=== PATIENT | female | born 1990 | race Caucasian/White ===

== ENCOUNTER 2017-10-17 01:22 | Inpatient (IN) ==
--- OUTSIDE RECORDS SUMMARY | 2017-10-17 01:31 | External Medical Summary | Summary of Care ---
:1990 Author Organization [facility] Address [address] [place] [place] [address] Phone Care Team Providers Name Role Phone Blanquita Quintana Unavailable Unavailable PCP Not Assigned Unavailable Unavailable Unavailable Unavailable Unavailable Functional Status Functional Status Health Issues Name Dates Details Functional status health issues are not documented Status: Cognitive Status Health Issues Name Dates Details Cognitive status health issues are not documented Status: Problems Name Dates Details Contact dermatitis due to poison vine (692.6, L25.5) Status: Active Cutaneous abscess of right lower extremity (682.6, L02.415) Status: Active Acute sinusitis (461.9, J01.90) Status: Active Acute upper respiratory infection (465.9, J06.9) Status: Active Possible (V72.40, Z32.00) Status: Active Dysuria (788.1, R30.0) Status: Active Medications Name Dates Details Plus 27-1 MG Oral Tablet TAKE 1 TABLET DAILY. Quantity: 30 Refills: 1 Mary Quintanaey Start : 24-Mar-2017 End : 23-May-2017 Active Allergies and Adverse Reactions Name Dates Details Sulfa Drugs (Allergy) Status: Active Past Medical History Name Dates Details History of acute pharyngitis (V12.69, Z87.09) Status: Resolved History of Known health problems: none (V49.89, Z78.9) Status: Resolved Procedures Procedure Dates Details Urinalysis, Chemistries Only ([facility] only) 8017 Date: 23-Apr-2017 Immunization Name Dates Details Immunizations not documented Family History Mother Name Dates Details Family history of Known health problems: none (V49.89, Z78.9) Status: Active Father Name Dates Details Family history of Known health problems: none (V49.89, Z78.9) Status: Active Social History Name Dates Details - Status: Smoking Status Name Dates Details Light tobacco smoker Vital Signs Date Test Result Details 70-Pog-177824:54 BP Systolic 132 mm[Hg] Status: BP Diastolic 86 mm[Hg] Status: Weight 179.6 lb Status: Body Mass Index Calculated 28.99 kg/m2 Status: Body Surface Area Calculated 1.91 m2 Status: Temperature 97.5 f Status: Heart Rate 77 /min Status: O2 SAT 100 % Status: Results Date Description Value Details 33-Sgz-452989:35 URINE TEST 8010 Comments: Testing performed by [facility], [address] [place] [address] Phone: Testing performed by [facility], [address], [place] [address] URINE TEST Positive (Abnormal) Range: Negative Comments: Internal Control: Acceptable----- 42-Bqd-[id number]:44 SERUM TEST 8020 SERUM TEST Positive (Abnormal) Range: Negative Comments: Internal Control: Acceptable----- Plan of Care Name Dates Details Planned Observations Planned Goals not documented Instructions Name Dates Details Instructions not documented Encounters Appointment; Blanquita Quintana On: 18-May-2016 10:35 Encounter Diagnosis: Problem not documented Appointment; Blanquita Quintana On: 14-Jul-2016 8:25 Encounter Diagnosis: Problem not documented Appointment; Nury Rosas APRN On: 18-Dec-2016 8:45 Encounter Diagnosis: Problem not documented Appointment; Blanquita Quintana On: 05-Mar-2017 9:35 Encounter Diagnosis: Problem not documented Appointment; Blanquita Quintana On: 24-Mar-2017 16:00 Encounter Diagnosis: Problem not documented Appointment; Blanquita Quintana On: 23-Apr-2017 10:40 Encounter Diagnosis: Problem not documented
--- OUTSIDE RECORDS SUMMARY | 2017-10-17 01:31 | External Medical Summary | Summary of Care ---
:1990 Author Name Blanquita Quintana Address [address] [place], [place] [address] Care Team Providers Name Role Phone Mariano, Blanquita Unavailable Unavailable PCP Not Assigned Unavailable Unavailable [...] Status: Active Possible (V72.40, Z32.00) Status: Active Medications Name Dates Details Plus 27-1 MG Oral Tablet TAKE 1 TABLET DAILY. Quantity: 30 Refills: 1 Blanquita Quintana Start : 24-Mar-2017 End : 23-May-2017 Active Allergies and Adverse Reactions Name Dates Details Sulfa Drugs (Allergy) Status: Active Past Medical History Name Dates Details History of acute pharyngitis (V12.69, Z87.09) Status: Resolved History of Known health problems: none (V49.89, Z78.9) Status: Resolved Procedures Procedure Dates Details Procedures not documented Immunization Name Dates Details Immunizations not documented Family History Mother Name Dates Details Family history of Known health problems: none (V49.89, Z78.9) Status: Active Father Name Dates Details Family history of Known health problems: none (V49.89, Z78.9) Status: Active Social History Name Dates Details - Status: Smoking Status Name Dates Details Light tobacco smoker Vital Signs Date Test Result Details 14-Ldr-029006:54 BP Systolic 132 mm[Hg] Status: BP Diastolic 86 mm[Hg] Status: Weight 179.6 lb Status: Body Mass Index Calculated 28.99 kg/m2 Status: Body Surface Area Calculated 1.91 m2 Status: Temperature 97.5 f Status: Heart Rate 77 /min Status: O2 SAT 100 % Status: :45 Weight 178 lb Status: Body Mass Index Calculated 28.73 kg/m2 Status: Body Surface Area Calculated 1.9 m2 Status: Temperature 97.1 f Status: Comments: Method: Oral Heart Rate 70 /min Status: O2 SAT 99 % Status: Comments: Source: RA Results Date Description Value Details :51 STREPTOCOCCUS SCREEN WITH CULTURE Comments: *Culture in progress*Testing performed by [facility], [address], [place] [address] Testing performed by [facility], [address], [place] [address] 5040 *STREPTOCOCCUS SCREEN NEGATIVE for Streptococcus Range: NEGATIVE for Streptococcus pyogenes pyogenes :51 THROAT CULTURE [id number] Comments: Hunie performed at: [facility], [address] [place], [address], Rn Wellness: Avi Banegas D.O., MPHQuest Collection Date/Time: [id number] Results Received Date/Time: [id number] Reported Date /Time: [id number] CULTURE, THROAT SEE NOTE (Abnormal) Comments: CULTURE, THROAT MICRO NUMBER: [id number] TEST STATUS: FINAL SPECIMEN SOURCE: THROAT SPECIMEN QUALITY: ADEQUATE RESULT: Moderate growth of Group G Streptococcus Beta-hemolytic Streptococci are predictably susceptible to penicillin and other beta-lactams. Susceptibility testing not routinely performed. COMMENT: Normal oropharyngeal loni also present.[WV]----- :35 URINE TEST 8010 Comments: Testing performed by [facility], [address], [place] [address] Phone: Testing performed by [facility], [address], [place] [address] URINE TEST Positive (Abnormal) Range: Negative Comments: Internal Control: Acceptable----- :44 SERUM TEST 8020 SERUM TEST Positive (Abnormal) [...]
--- OUTSIDE RECORDS SUMMARY | 2017-10-17 01:31 | External Medical Summary | Summary of Care ---
:1990 Author Name Blanquita Quintana Address [address] [place], [place] [address] Care Team Providers Name Role Phone Mariano Blanquita Unavailable Unavailable PCP Not Assigned Unavailable [...] Status: Active Possible (V72.40, Z32.00) Status: Active Urinary tract infection in mother during first trimester of (646.63, O23.41) Status: Active Medications Name Dates Details Cephalexin 500 MG Oral Capsule Take 1 capsule BID for 7 days Quantity: 14 Refills: 0 Blanquita Quintana Start : 23-Apr-2017 End : 30-Apr-2017 Active Plus 27-1 MG Oral Tablet TAKE 1 [...] Procedures Procedure Dates Details Urinalysis, Chemistries Only ([facility] only) 8017 Date: 23-Apr-2017 Immunization Name Dates [...] smoker Vital Signs Date Test Result Details 83-[id number]:53 BP Systolic 120 mm[Hg] Status: BP Diastolic 66 mm[Hg] Status: Weight 177 lb Status: Body Mass Index Calculated 28.57 kg/m2 Status: Body Surface Area Calculated 1.9 m2 Status: Temperature 97.6 f Status: Heart Rate 70 /min Status: Respiration Rate 16 /min Status: O2 SAT 99 % Status: Results Date Description Value Details 76-[id number]:54 Urinalysis, reflex to Micro and Comments: Testing performed by [facility], [address] [place] [address] Culture ([facility]) 2201 pH 6.0 Range: 5.0-7.5 SP GRAVITY 1.015 Range: 1.010-1.030 APPEARANCE Cloudy (Abnormal) Range: Clear COLOR Yellow Range: Straw-Yellow PROTEIN Negative mg/dL Range: Negative-Trace GLUCOSE Negative mg/dL Range: Negative KETONES Negative mg/dL Range: Negative BILIRUBIN Negative Range: Negative BLOOD Negative Range: Negative UROBIL 0.2 EU/dL Range: 0.2-1.0 NITRITE Negative Range: Negative LEUKOCYTES 1+ (Abnormal) Range: Negative 51-[id number]:54 Urine Microscopic UMIC WBC 3-5 {/HPF} Range: 0-5 RBC 0-2 {/HPF} Range: 0-2 BACTERIA 1+ {/HPF} (Abnormal) Range: Negative-Trace EPITH 3-5 {/HPF} Range: 0-10 Plan of Care Name Dates Details Planned [...]
--- OUTSIDE RECORDS SUMMARY | 2017-10-17 01:31 | External Medical Summary | Continuity of Care Document ---
:1990 Author Organization [facility] Address [address] [place], [place] [address] Phone Allergies, Adverse Reactions, Alerts Substance Reaction Severity Status Sulfa (Sulfonamide Antibiotics) hives Unknown Active Medications Medication Instructions Dosage Effective Dates Status Comments (start - stop) cyclobenzaprine 5 mg take 1 tablet by oral 5 MG - Active [facility] tablet route 3 times every day as needed FAMOTIDINE (unknown take 1 tablet by oral - Active strength) route every day as needed PREPLUS (unknown take 1 tablet by oral - Active strength) route every day Problems Condition Effective Dates (start - stop) Clinical Status Encntr for suprvsn of normal first - preg, third trimester 32 weeks gestation of - Encntr for suprvsn of normal first - preg, second trimester 16 weeks gestation of - Oth diseases and conditions compl - preg/chldbrth Encntr for suprvsn of normal first - preg, third trimester 29 weeks gestation of - Oth diseases and conditions compl - preg/chldbrth 32 weeks gestation of - Headache - Encntr for suprvsn of normal first - preg, second trimester 24 weeks gestation of - Encntr screen for infections w sexl - mode of transmiss Encounter for screening for oth - infec/parastc diseases Encntr for suprvsn of normal first - preg, first trimester Encounter For Other Specified - Screening 11 weeks gestation of - Encntr for suprvsn of normal first - preg, first trimester 13 weeks gestation of - Encntr for suprvsn of normal first - preg, first trimester 13 weeks gestation of - Encntr for suprvsn of normal first - preg, second trimester 20 weeks gestation of - Encntr for suprvsn of normal first - preg, second trimester 20 weeks gestation of - Encntr for suprvsn of normal first - preg, third trimester 34 weeks gestation of - Encntr for suprvsn of normal first - preg, third trimester 28 weeks gestation of - Procedures Procedure Date OB Visit No Charge Results Test Name Date and Time Measure Units Reference Range Abnormal Flag Comments Unknown Advance Directives Directive Yes / No Effective Date File Name Unknown Encounters Encounter Practice Location Reason(s) Diagnoses Date Provider Care Team Description For Visit Members Dat Wagner Encntr for Ciro Referring In Womens suprvsn of normal 7-201 Linda. Provider: Health PA, first preg, third 8 700 Linda [address] [email or web address] weeks Laine Tanner L, 1522, gestation of Center [address] [place] [address], Dr [facility], 120, [place] [id number], [facility], Bernard [place], tel:[phone] [place] [address] , . [id number]. tel: tel:[phone] Dat Wagner Encntr for Ciro Referring In Womens suprvsn of normal 3-201 Linda. Provider: Health PA, first preg, third 8 700 Linda PO Box [email or web address] weeks Laine Tanner L, 1522, gestation of [address], [address] [facility], 120, [place] [id number], [facility], Bernard [place], tel:[phone] [facility] , . [id number]. tel: tel:[phone] Dat Wagner Oth diseases and Alexys-1 Ciro Referring In Womens Ultrasound conditions compl 3-201 Linda. Provider: Daniel REID, preg/[email or web address] 8 700 Blanquita PO Box weeks gestation Medical Mariano, 1522, of Center [address], [place], 120, [place] [id number], Bernard, Office, [facility], Doshi tel:[phone] , [place], , [place]. [id number]. tel: tel:[phone] Associates [place] Oth diseases and August-2 Ciro Referring In Womens conditions compl 9-201 Linda. Provider: Daniel REID, preg/chldbrthEncn 8 700 Linda PO Box tr for suprvsn of Medical Ciro L, 1522, normal first Center [address] [place] [address], preg, third [place], [email or web address] weeks 120, [place] , gestation of Bernard [facility] 120, [place], tel: [phone] [place], , [place]. [id number]. tel: tel:[phone] Associates [place] Encntr for August- Ciro Referring In Womens suprvsn of normal 6-201 Linda. Provider: Daniel REID, first preg, third 8 700 Linda PO Box [email or web address] weeks Medical Ciro L, 1522, gestation of Center [address] [place] [address], [place], 120, [place] [id number], Bernard [facility] 120, [place] Bernard [place], tel:[phone] [place], , [place]. [id number]. tel: tel:[phone] Associates [place] HeadacheEncntr Jul- Ciro Referring In Womens for suprvsn of 8-201 Linda. Provider: Daniel REID, normal first 8 700 Linda PO Box preg, second Medical Ciro L, 1522, weeks Center [address] [place] [address], gestation of [place], 120, Center [id number], Bernard [facility] 120, [place] Bernard [place], tel:[phone] [place], , [place]. [id number]. tel: tel:[phone] Dat Wagner Apr-1 Ciro Referring In Womens 1-201 Linda. Provider: Daniel REID, 8 700 Linda PO Box Medical Ciro L, 1522, Center [address], [place], 120, Center [id number], Bernard [facility] 120, [place] Bernard [place], tel:[phone] [place], , [place]. [id number]. tel: tel:[phone] Dat Wagner Encntr for Mar-2 Ciro Referring In Womens suprvsn of normal 1-201 Linda. Provider: Daniel REID, first preg, 8 700 Linda PO Box second Medical Ciro L, 1522, [email or web address] weeks Center [address] [place] [address], gestation of [place], 120, [place] [id number], Bernard [facility] 120, [place] Bernard [place], tel:[phone] [place], , [place]. [id number]. tel: tel:[phone] Dat Wagner Encntr for Mar-2 Ciro Referring In Womens Ultrasound suprvsn of normal 1-201 Linda. Provider: Daniel REID, first preg, 8 700 Linda PO Box second Medical Ciro L, 1522, [email or web address] weeks Center [address] [place] [address], gestation of [place], 120, [place] [id number], Bernard [facility] 120, [place] Bernard [place], tel:[phone] [place], , [place]. [id number]. tel: tel:[phone] Dat Wagner Encntr for Feb-2 Ciro Referring In Womens suprvsn of normal 1-201 Linda. Provider: Daniel REID, first preg, 8 700 Linda PO Box second Medical Ciro L, 1522, [email or web address] weeks Center [address] [place] [address], gestation of [place], 120, [place] [id number], Bernard [facility] 120, [place] Bernard [place], tel:[phone] [place], , [place]. [id number]. tel: tel:[phone] Associates [place] Encntr for Feb-0 Ciro Referring In Womens suprvsn of normal 1-201 Linda. Provider: Daniel REID, first preg, first 8 700 Linda PO Box [email or web address] weeks Medical Ciro L, 1522, gestation of Center [address], , [facility], 120, [place] [id number], Bernard [facility] 120, [place] Bernard [place], tel:[phone] [place], , [place]. [id number]. tel: tel:[phone] Associates [place] Castillontr for Feb-0 Ciro Referring In Womens Ultrasound suprvsn of normal 1-201 Linda. Provider: Daniel REID, first preg, first 8 700 Blanquita PO Box [email or web address] weeks Medical Mariano, 1522, gestation of Center [address] [facility], , [facility], 120, [place] [id number], Bernard, Office, [facility] Doshi tel: [phone] , [place], , [place]. [id number]. tel: tel:[phone] Dat Castillontr screen for Dwain-2 Ciro Referring In Womens infections w sexl 3-201 Linda. Provider: Daniel REID, mode of 8 700 Linda PO Box transmiss[facility]ounte [facility], 1522, r for screening [address], for oth , [facility], infec/parastc 120, [place] [id number], diseases[facility]ntr [facility] 120, [place] for suprvsn of Bernard SARAVIA, tel:[phone] normal first [phone] [place], preg, first , [place]. [id number]. trimesterEncounte tel: tel:[phone] r For Other [phone] Specified [email or web address] weeks gestation of Associates Bernard Dec-2 Ciro In Womens 9-201 Linda. Daniel REID, 7 700 PO Box Medical [address], [address] [facility], 120, [id number], [facility] [place], tel:[phone] , . tel: [phone] Family History Family Member Diagnosis Age At Onset No family history of Venous Thrombosis Maternal Grandmother Cardiovascular Disease Paternal Grandmother Lung Disease Paternal Grandfather Cardiovascular Disease No family history of Ovarian Cancer No family history of Epilepsy Paternal Grandmother Hypertension No family history of Uterine Cancer Maternal Grandmother Hypertension Maternal Grandmother Stroke Paternal Grandmother Thyroid Disorder Maternal Grandmother Diabetes No family history of Colon Cancer No family history of Pulmonary Embolism Paternal Grandfather Stroke No family history of Kidney Disease Maternal Grandmother Breast Cancer Mother Osteoporosis Father Cardiovascular Disease Father Lung Disease Brother Hypertension Maternal Grandfather Hypertension Paternal Grandfather Hypertension Immunizations Vaccine Date Status Comments Unknown Payers Payer name Insurance type Covered libertarian ID Authorization(s) [facility] [employer] [facility] [id number] Social History Type Description Quantity Date Captured Alcohol Use Details No Caffeine Use Details Unknown Tobacco Use Status Smoking Status Former smoker Vital Signs Date / Height Weight BMI Pulse Blood Temperature Respiratory Body Head BMI Time: Rate Pressure Rate Surface Circumference percentile Area Unknown Chief Complaint And Reason For Visit Unknown Chief Complaint And Reason For Visit Reason For Referral Reason For Referral Unknown Plan Of Care Date Type Action Status Goal Tobacco cessation counseling completed Appointment Lorena Tim BOOKED Appointment Lorena Tim BOOKED Future Order: Radiology Order Ultrasound OB Follow-up (95170) Ordered Future Order: Radiology Order Nuchal Translucency (31931) Ordered Future Order: Radiology Order Complete OB Ultrasound > 14 Ordered Weeks (98193) Date Type Problem Goal Intervention Status Start Date Unknown. History Of Present Illness Encounter Date Complaint History Of Present Illness This patient has no known history of present illness Functional Status Encounter Date Functional Assessment Cognitive Assessment Unknown Medications Administered Medication Instructions Dosage Effective Dates (start - stop) Status Comments Drug Treatment Unknown Instructions Date Instruction Additional Information use of any medications (including supplements, vitamins, herbs, OTC drugs) exercise indications for ultrasound influenza vaccine environmental / work hazards travel tobacco (ask, advise, assess, assist and arrange) HIV and other routine tests risk factors identified by history anticipated course of care nutrition and weight gain counseling, special diet toxoplasmosis precautions (cats / raw meat) sexual activity smoking counseling domestic violence seat belt use childbirth classes / hospital facilities hospital registration genetic testing new ob handbook
--- OUTSIDE RECORDS SUMMARY | 2017-10-17 01:31 | External Medical Summary | Summary of Care ---
:1990 Author Name Blanquita Quintana Address [address] [place], [place] [address] Care Team Providers Name Role Phone Mariano [...] O23.41) Status: Active Medications Name Dates Details Plus 27-1 MG Oral Tablet TAKE 1 TABLET DAILY. Quantity: 30 Refills: 1 Blanquita Quintana Start : 24-Mar-2017 End : 23-May-2017 Active Cephalexin 500 MG Oral Capsule Take 1 capsule BID for 7 days Quantity: 14 Refills: 0 Blanquita Quintana Start : 23-Apr-2017 End : 30-Apr-2017 Active Allergies and Adverse Reactions Name Dates Details Sulfa Drugs (Allergy) Status: Active Past Medical History Name Dates Details History of acute pharyngitis (V12.69, Z87.09) Status: Resolved History of Known health problems: none (V49.89, Z78.9) Status: Resolved Procedures Procedure Dates Details Urinalysis, Chemistries Only ([facility] only) 8017 Date: 23-Apr-2017 Immunization [...] smoker Vital Signs Date Test Result Details :53 BP Systolic 120 mm[Hg] Status: BP Diastolic 66 mm[Hg] Status: Weight 177 lb Status: Body Mass Index Calculated 28.57 kg/m2 Status: Body Surface Area Calculated 1.9 m2 Status: Temperature 97.6 f Status: Heart Rate 70 /min Status: Respiration Rate 16 /min Status: O2 SAT 99 % Status: :54 BP Systolic 132 mm[Hg] Status: BP Diastolic 86 mm[Hg] Status: Weight 179.6 lb Status: Body Mass Index Calculated 28.99 kg/m2 Status: Body Surface Area Calculated 1.91 m2 Status: Temperature 97.5 f Status: Heart Rate 77 /min Status: O2 SAT 100 % Status: Results Date Description Value Details :35 URINE TEST 8010 Comments: Testing performed by [facility], [employer] [facility] [place] [facility] [place] Phone: Testing performed by [facility], [employer] [facility] [place] [facility] [place] URINE TEST Positive (Abnormal) Range: Negative Comments: Internal Control: Acceptable----- :44 SERUM TEST 8020 SERUM TEST Positive (Abnormal) Range: Negative Comments: Internal Control: Acceptable----- :54 Urinalysis, reflex to Micro and Comments: Testing performed by [facility], [id number] Culture ([facility]) 8016 pH 6.0 Range: 5.0-7.5 SP GRAVITY 1.015 Range: 1.010-1.030 APPEARANCE Cloudy (Abnormal) Range: Clear COLOR Yellow Range: Straw-Yellow PROTEIN Negative mg/dL Range: Negative-Trace GLUCOSE Negative mg/dL Range: Negative KETONES Negative mg/dL Range: Negative BILIRUBIN Negative Range: Negative BLOOD Negative Range: Negative UROBIL 0.2 EU/dL Range: 0.2-1.0 NITRITE Negative Range: Negative LEUKOCYTES 1+ (Abnormal) Range: Negative Plan of Care Name Dates Details Planned Observations Planned Goals not documented Interventions Provided Medication ChangesCephalexin 500 MG Oral Capsule - StartLabs/Procedures/Imaging Urinalysis, Chemistries Only ([facility] only) 8017; To Be Done: 23 Apr 2017 Instructions Name Dates Details Instructions not documented [...]
--- OUTSIDE RECORDS SUMMARY | 2017-10-17 01:31 | External Medical Summary | Summary of Care ---
:1990 Author Name MarianoBlanquita sanches Address [address] Unavailable [place], [place] [id number] Care Team Providers Name Role Phone Blanquita Quintana Unavailable Unavailable Nury Rosas Unavailable Unavailable PCP Not Assigned Unavailable Unavailable [...] upper respiratory infection (465.9, J06.9) Status: Active Medications Name Dates Details Claritin 10 MG Oral Capsule Refills: 0 Nury Rosas Start : 18-Dec-2016 Active PredniSONE 10 MG Oral Tablet TAKE 4 TABLETS DAILY FOR 2 DAYS,3 TABLETS DAILY FOR 2 DAYS, 2 TABLETS DAILY FOR 2 DAYS AND 1 TABLET DAILY FOR 2 DAYS, THEN STOP. Quantity: 20 Refills: 0 Blanquita Quintana Start : 05-Mar-2017 Active Azithromycin 250 MG Oral Tablet Take 2 po today then 1 po for 4 days. Quantity: 6 Refills: 0 Blanquita Quintana Start : 05-Mar-2017 Active Allergies and Adverse Reactions Name Dates [...] smoker Vital Signs Date Test Result Details 38-Kxi-64407:45 Weight 178 lb Status: Body Mass Index Calculated 28.73 kg/m2 Status: Body Surface Area Calculated 1.9 m2 Status: Temperature 97.1 f Status: Comments: Method: Oral O2 SAT 99 % Status: Comments: Source: RA Heart Rate 70 /min Status: Results Date Description Value Details 75-Byc-30784:51 STREPTOCOCCUS SCREEN WITH CULTURE Comments: *Culture in progress*Testing performed by [facility], [address], [place] [address] Testing performed by [facility], [address], [place] [address] 5040 *STREPTOCOCCUS SCREEN NEGATIVE for Streptococcus Range: NEGATIVE for Streptococcus pyogenes pyogenes Plan of Care Name Dates Details Planned Observations Planned Goals not documented Interventions Provided Medication ChangesAzithromycin 250 MG Oral Tablet - StartPredniSONE 10 MG Oral Tablet - StartLabs/Procedures/ImagingSTREPTOCOCCUS SCREEN WITH CULTURE 5040; Done: 05 Mar 2017 Instructions Name Dates Details Instructions not documented Encounters Appointment; Blanquita Quintana On: 18-May-2016 10:35 Encounter Diagnosis: Problem not documented Appointment; Blanquita Quintana On: 14-Jul-2016 8:25 Encounter Diagnosis: Problem not documented Appointment; Nury Rosas APRN On: 18-Dec-2016 8:45 Encounter Diagnosis: Problem not documented Appointment; Blanquita Quintana On: 05-Mar-2017 9:35 Encounter Diagnosis: Problem not documented
--- OUTSIDE RECORDS SUMMARY | 2017-10-17 01:31 | External Medical Summary | Summary of Care ---
:1990 Author Name Blanquita Quintana Address [address] Unavailable [place], [place] [id number] Care Team Providers Name Role Phone Mariano [...] Z78.9) Status: Resolved Procedures Procedure Dates Details SERUM TEST 8020 Date: 24-Mar-2017 Immunization Name Dates Details Immunizations not documented Family History Mother Name Dates Details Family history of Known health problems: none (V49.89, Z78.9) Status: Active Father Name Dates Details Family history of Known health problems: none (V49.89, Z78.9) Status: Active Social History Name Dates Details - Status: Smoking Status Name Dates Details Light tobacco smoker Vital Signs Date Test Result Details 18-Twk-751276:54 BP Systolic 132 mm[Hg] Status: BP Diastolic [...] CULTURE Comments: *Culture in progress*Testing performed by [facility], [address], [place] [address] Testing performed by [facility], [address], [place] [address] 5040 *STREPTOCOCCUS SCREEN NEGATIVE for Streptococcus Range: NEGATIVE for Streptococcus pyogenes pyogenes :51 THROAT CULTURE J72306 Comments: [employer] performed at: [facility]apFormerly [facility], [address] [place], [address], Meter Changes Records Clerk: Avi Banegas D.O., MPHQuest Collection Date/Time: [id number] [id number] Results Received Date/Time: [id number] Reported Date /Time: [id number] CULTURE, THROAT SEE NOTE (Abnormal) Comments: CULTURE, THROAT MICRO NUMBER: [id number] TEST STATUS: FINAL SPECIMEN SOURCE: THROAT SPECIMEN QUALITY: ADEQUATE RESULT: Moderate growth of Group G Streptococcus Beta-hemolytic Streptococci are predictably susceptible to penicillin and other beta-lactams. Susceptibility testing not routinely performed. COMMENT: Normal oropharyngeal loni also present.[AR]----- :35 URINE TEST 8010 Comments: Testing performed by [facility], [address], [place] [address] Phone: Testing performed by [facility], [address], [place] [address] URINE TEST Positive (Abnormal) Range: Negative Comments: Internal Control: Acceptable----- Plan of Care Name Dates Details Planned Observations Planned Goals not documented Interventions Provided Medication ChangesPrenatal Plus 27-1 MG Oral Tablet - StartLabs/Procedures/ ImagingSERUM TEST 8020; To Be Done: 24 Mar 2017URINE TEST 8010; Done: 24 Mar 2017 Instructions Name Dates Details Instructions [...]
--- OUTSIDE RECORDS SUMMARY | 2017-10-17 01:31 | External Medical Summary | Summary of Care ---
:1990 Author Name Nury Rosas Address [address] [place] [place], [place] [address] Care Team Providers Name Role Phone Nury Rosas Unavailable Unavailable PCP Not Assigned [...] Active Acute sinusitis (461.9, J01.90) Status: Active Medications Name Dates Details Claritin 10 MG Oral Capsule Refills: 0 Juana oRsasfer Start : 18-Dec-2016 Active Amoxicillin-Pot Clavulanate 875-125 MG Oral Tablet TAKE 1 TABLET EVERY 12 HOURS DAILY. Quantity: 20 Refills: 0 Nury Rosas Start : 18-Dec-2016 End : 28-Dec-2016 Active PredniSONE 10 MG Oral Tablet TAKE 4 TABLETS DAILY FOR 2 DAYS,3 TABLETS DAILY FOR 2 DAYS, 2 TABLETS DAILY FOR 2 DAYS AND 1 TABLET DAILY FOR 2 DAYS, THEN STOP. Quantity: 20 Refills: 0 Juana Rosasfer Start : 18-Dec-2016 Active Fluticasone Propionate 50 MCG/ACT Nasal Suspension USE 1 TO 2 SPRAYS IN EACH NOSTRIL ONCE DAILY. Quantity: 1 Refills: 0 Ralph Nury Start : 18-Dec-2016 Active 16 GM Bottle Allergies and Adverse Reactions Name Dates Details Sulfa Drugs (Allergy) Status: Active Past Medical History Name Dates Details History of Known health problems: none (V49.89, [...] smoker Vital Signs Date Test Result Details 18-Dec-20168:50 BP Systolic 129 mm[Hg] Status: BP Diastolic 83 mm[Hg] Status: Weight 178.6 lb Status: Height 66 in Status: Body Mass Index Calculated 28.83 kg/m2 Status: Body Surface Area Calculated 1.91 m2 Status: Temperature 98.1 f Status: Heart Rate 76 /min Status: Respiration Rate 18 /min Status: O2 SAT 99 % Status: Results Date Description Value Details Results not documented Plan of Care Name Dates Details Planned Observations Planned Goals not documented Interventions Provided Medication ChangesAmoxicillin-Pot Clavulanate 875-125 MG Oral Tablet - StartFluticasone Propionate 50 MCG/ACT Nasal Suspension - StartPredniSONE 10 MG Oral Tablet - Start Instructions Name Dates Details Instructions not documented Encounters Appointment; Blanquita Quintana On: 18-May-2016 10:35 Encounter Diagnosis: Problem not documented Appointment; Blanquita Quintana On: 14-Jul-2016 8:25 Encounter Diagnosis: Problem not documented Appointment; Nury Rosas APRN On: 18-Dec-2016 8:45 Encounter Diagnosis: Problem not documented
--- OUTSIDE RECORDS SUMMARY | 2017-10-17 01:31 | External Medical Summary | Summary of Care ---
:1990 Author Organization [facility] Address [address] [place] [address] Phone Care Team Providers Name Role Phone Alexandria Celeste, User Unavailable Unavailable Blanquita Quintana Unavailable Unavailable Nury Rosas Unavailable [...] smoker Vital Signs Date Test Result Details :45 Weight 178 lb Status: Body Mass Index Calculated 28.73 kg/m2 Status: Body Surface Area Calculated 1.9 m2 Status: Temperature 97.1 f Status: Comments: Method: Oral O2 SAT 99 % Status: Comments: Source: RA Heart Rate 70 /min Status: Results Date Description Value Details :51 STREPTOCOCCUS SCREEN WITH CULTURE Comments: *Culture in progress*Testing performed by [facility], [address], [place] [address] Testing performed by [facility], [address], [place] [address] 5040 *STREPTOCOCCUS SCREEN NEGATIVE for Streptococcus Range: NEGATIVE for Streptococcus pyogenes pyogenes :51 THROAT CULTURE [id number] Comments: L[employer] performed at: [facility]endineroFormerly [facility], [address] [place], [address], Meter Changes Records Clerk: Avi Banegas D.O., MPHQuest Collection Date/Time: 20160412 [id number] Results Received Date/Time: [id number] Reported Date /Time: [id number] CULTURE, THROAT SEE NOTE (Abnormal) Comments: CULTURE, THROAT MICRO NUMBER: [id number] TEST STATUS: FINAL SPECIMEN SOURCE: THROAT SPECIMEN QUALITY: ADEQUATE RESULT: Moderate growth of Group G Streptococcus Beta-hemolytic Streptococci are predictably susceptible to penicillin and other beta-lactams. Susceptibility testing not routinely performed. COMMENT: Normal oropharyngeal loni also present.[IN]----- Plan of Care Name Dates Details Planned [...]
--- OUTSIDE RECORDS SUMMARY | 2017-10-17 01:31 | External Medical Summary | Summary of Care ---
:1990 Author Name MarianoBlanquita sanches Address [address] Unavailable [place], [place] [address] Care Team Providers Name Role Phone Blanquita [...] CULTURE Comments: *Culture in progress*Testing performed by [facility], [address] [place] [address] Testing performed by [facility], 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 Susceptibility testing not routinely performed. COMMENT: Normal oropharyngeal loni also present.[SD]----- Plan of Care Name Dates Details Planned [...]
--- OUTSIDE RECORDS SUMMARY | 2017-10-17 01:31 | External Medical Summary | Continuity of Care Document ---
:1990 Author Organization [facility] Address [address] [place], [place] [address] Phone Allergies, Adverse Reactions, Alerts Substance Reaction [...] Effective Dates (start - stop) Clinical Status Oth diseases and conditions compl - preg/chldbrth 32 weeks gestation of - Encntr for suprvsn of normal first - preg, second trimester 16 weeks gestation of - Oth diseases and conditions compl - preg/chldbrth Encntr for suprvsn of normal first - preg, third trimester 29 weeks gestation of - Headache - Encntr [...] weeks gestation of - Procedures Procedure Date Ultrasnd preg uterus, flwup/repeat Results Test Name Date and Time Measure Units Reference Range Abnormal Flag Comments Unknown Advance Directives Directive Yes / No Effective Date File Name Unknown Encounters Encounter Practice Location Reason(s) Diagnoses Date Provider Care Team Description For Visit Members [facility] Encntr for Ciro Referring In Womens suprvsn of normal 7-201 Linda. Provider: Daniel REID, first preg, third 8 700 Linda [address] [email or web address] weeks Liane Tanner L, 1522, gestation of Center [address] [place] [address], Dr [facility], 120, [place] [id number], [facility] 120, Bernard SARAV[place], tel:+ [phone] [place] [address] , . [id number]. tel: tel:[phone] Dat [facility] Encntr for Sep- Ciro Referring In Womens suprvsn of normal 3-201 Linda. Provider: Health FRANKLIN, first preg, third 8 700 Linda [address] [email or web address] weeks Medical Ciro L, 1522, gestation of Center [address] [place], [place] [address], [place], 120, [place] [id number], [facility] 120, Bernard [place], tel: [phone] [facility] , . [id number]. tel: tel:[phone] [facility] Oth diseases and Alexys-1 Ciro Referring In Womens Ultrasound conditions compl 3-201 Linda. Provider: Daniel REID, preg/asogsrxx91 8 700 Blanquita PO Box weeks gestation Medical Mariano, 1522, of Center [address], [place], 120, [place] [id number], Bernard, Office, [facility], Doshi tel:[phone] , [place], [place]. [id number]. tel: tel:[phone] [facility] Oth diseases and August-2 Ciro Referring In Womens conditions compl 9-201 Linda. Provider: Daniel REID, preg/chldbrthEncn 8 700 Linda [address] tr for suprvsn of Medical Ciro L, 1522, normal first Center [address] [place], [place] [address], preg, third [place], [email or web address] weeks 120, [place] , gestation of Bernard [facility] 120, [place], tel:[phone] [place], , [place]. [id number]. tel: tel:[phone] [facility] Encntr for August-1 Ciro Referring In Womens suprvsn of normal 6-201 Linda. Provider: Daniel REID, first preg, third 8 700 Linda [address] [id number] weeks Medical Ciro L, 1522, gestation of Center [address] [place] [address], [place], 120, [place] [id number], Bernard [facility] 120, [place] Bernard SARAV[place], tel:[phone] [place], , [place]. [id number]. tel: tel:[phone] [facility] HeadacheEncntr Apr- Ciro Referring In Womens for suprvsn of 8-201 Linda. Provider: Daniel REID, normal first 8 700 Linda [address] preg, second Medical Ciro L, 1522, [id number] weeks Center [address] [place] [address], gestation of [place], 120, Center [id number], Bernard [facility] 120, [place] Bernard [place], tel:[phone] [place], , [place] [id number]. tel: tel:[phone] Dat [facility] Apr-1 Ciro Referring In Womens 1-201 Linda. Provider: Daniel REID, 8 700 Linda [address] Medical Ciro L, 1522, Center [address], [place], 120, Center [id number], Bernard [facility] 120, [place] Bernard [place], tel:[phone] [place], , [place]. [id number]. tel: tel:[phone] Dat [facility] Encntr for Mar-2 Ciro Referring In Womens suprvsn of normal 1-201 Linda. Provider: Health FRANKLIN, first preg, 8 700 Linda PO Box second Medical Ciro L, 1522, [email or web address] weeks Center [address] [place], [place] [address], gestation of [place], 120, Center [id number], Bernard [place] 120, [place] Bernard SARAV[place], tel:[phone] [place], , [place]. [id number]. tel: tel:[phone] Dat [facility] Encntr for Mar-2 Ciro Referring In Womens Ultrasound suprvsn of normal 1-201 Linda. Provider: Health FRANKLIN, first preg, 8 700 Linda [address] second Medical Ciro L, 1522, weeks Center [address] [place], [place] [address], gestation of [place], 120, Center [id number], Bernard [place] 120, [place] Bernard SARAVIA, tel:[phone] [place], , [place]. [id number]. tel: tel:[phone] Dat [facility] Encntr for Feb-2 Ciro Referring In Womens suprvsn of normal 1-201 Linda. Provider: Daniel REID, first preg, 8 700 Linda PO Box second Medical Ciro L, 1522, [email or web address] weeks Center [address] [place] [address], gestation of [place], 120, Center [id number], Bernard [place] 120, [place] Bernard SARAVIA, tel:[phone] [place], , [place]. [id number]. tel: tel:[phone] Dat [place] Encntr for Feb-0 Ciro Referring In Womens suprvsn of normal 1-201 Linda. Provider: Health FRANKLIN, first preg, first 8 700 Linda [address] [id number] weeks Medical Ciro L, 1522, gestation of Center [address], , [facility], 120, [place] [id number], Bernard, [facility] 120, [place] Bernard SAR[place], tel:[phone] [place], , [place]. [id number]. tel: tel:[phone] Dat Castillontr for Feb-0 Ciro Referring In Womens Ultrasound suprvsn of normal 1-201 Linda. Provider: Daniel REID, first preg, first 8 700 Blanquita [address] Box [email or web address] weeks Medical Mariano, 1522, gestation of Center [address], [place], 120, [place] [id number], Bernard, Office, [place] tel:[phone] , [place], [place]. [address]. tel: tel:[phone] Dat [place] Encntjw screen for Dwain-2 Ciro Referring In Womens infections w sexl 3-201 Linda. Provider: Daniel REID, mode of 8 700 Linda [address] transmissEncounte Medical [facility] L, 1522, r for screening Center [address] [place] [address], for oth , [facility], infec/parastc 120, Center [id number], diseasesEncntr [facility] 120, [place] for suprvsn of Bernard SARAVIA, tel:[phone] normal first [place], preg, first , [place]. [id number]. trimesterEncounte tel: tel:[phone] r For Other [phone] Specified [id number] weeks gestation of Dat Wagner Dec-2 Ciro In Womens 9-201 Linda. Health FRANKLIN, 7 700 [address] Medical [address], Center Dr Jey, [place], 120, [id number], [facility] [place], tel:[phone] , [place]. tel: [phone] Family History Family Member Diagnosis Age At [...] name Insurance type Covered libertarian ID Authorization(s) [facility] [id number] Social History Type Description Quantity Date Captured Unknown Vital Signs Date / Height Weight BMI [...] Future Order: Radiology Order Ultrasound OB Follow-up (22157) Ordered Future Order: Radiology Order Nuchal Translucency ([id number]) Ordered Future Order: Radiology Order Complete OB Ultrasound > 14 Ordered Weeks (89262) Date Type Problem Goal Intervention Status Start [...]
--- OUTSIDE RECORDS SUMMARY | 2017-10-17 01:32 | External Medical Summary | Continuity of Care Document ---
:1990 Author Organization [facility] Address [address] [place], [place] [address] Phone Allergies, Adverse Reactions, Alerts Substance Reaction [...] Effective Dates (start - stop) Clinical Status Headache - Encntr for suprvsn of normal first - preg, second trimester 24 weeks gestation of - Encntr for suprvsn of normal first - preg, second trimester 16 weeks gestation of - Encntr screen for [...] second trimester 20 weeks gestation of - Procedures Procedure Date OB Visit No Charge Results Test Name Date and Time Measure Units Reference Range Abnormal Flag Comments Unknown Advance Directives Directive Yes / No Effective Date File Name Unknown Encounters Encounter Practice Location Reason(s) Diagnoses Date Provider Care Team Description For Visit Members Dat VailEncjarrett Jul- Ciro Referring In Womens for suprvsn of 8-201 Linda. Provider: Daniel REID, normal first 8 700 Linda [address] preg, second Medical Ciro L, 1522, [email or web address] weeks Center [address], gestation of [place], 120, Center [id number], Bernard, [facility] 120, Bernard SAR[place], tel:[phone] [place], , [place]. [id number]. tel: tel:[phone] Dat [facility] Jul- Ciro Referring In Womens 1-201 Linda. Provider: Daniel REID, 8 700 Linda [address] Medical Ciro L, 1522, Center [facility] [address], [place], 120, [place] [id number], Bernard, [facility] 120, [place] Bernard SARAV[place], tel:[phone] [place], , [place]. [id number]. tel: tel:[phone] Dat [facility] Encntr for Mar-2 Ciro Referring In Womens suprvsn of normal 1-201 Linda. Provider: Daniel REID, first preg, 8 700 Linda PO Box second Medical Ciro L, 1522, [email or web address] weeks Center [address], gestation of [place], 120, Center [id number], Bernard, [facility] 120, [place] Bernard [place], tel:[phone] [place], , [place]. [id number]. tel: tel:[phone] Dta [facility] Encntr for Mar-2 Ciro Referring In Womens Ultrasound suprvsn of normal 1-201 Linda. Provider: Daniel REID, first preg, 8 700 Linda PO Box second Medical Ciro L, 1522, [email or web address] weeks Center [address] [place] [address], gestation of [place], 120, Center [id number], Bernard, [facility] 120, [place] Bernard [place], tel:[phone] [place], , [place]. [id number]. tel: tel:[phone] Dat [facility] Encntr for Feb-2 Ciro Referring In Womens suprvsn of normal 1-201 Linda. Provider: Daniel REID, first preg, 8 700 Linda PO Box second Medical Ciro L, 1522, [id number] weeks Center [address] [place] [address], gestation of [place], 120, Center [id number], Bernard [facility] 120, [place] Bernard [place], tel:[phone] [place], , [place]. [id number]. tel: tel:[phone] Dat [facility] Encntr for Feb-0 Ciro Referring In Womens suprvsn of normal 1-201 Linda. Provider: Daniel REID, first preg, first 8 700 Linda [address] [email or web address] weeks Medical Ciro L, 1522, gestation of Center [address] [place] [address], [place], 120, Center [id number], Bernard [facility] 120, [place] Bernard [place], tel:[phone] [place], , [place]. [id number]. tel: tel:[phone] Dat [facility] Encntr for Feb-0 Ciro Referring In Womens Ultrasound suprvsn of normal 1-201 Linda. Provider: Daniel REID, first preg, first 8 700 Blanquita [address] [email or web address] weeks Medical Mariano, 1522, gestation of Center [address], [place], 120, [place] [id number], Bernard, [facility], Glenda SARAVIA tel:[phone] , [place], , [place]. [address]. tel: tel:[phone] Dat [facility] Encntr screen for Dwain-2 Ciro Referring In Womens infections w sexl 3-201 Linda. Provider: Daniel REID, mode of 8 700 Linda [address] transmissEncounte Medical Ciro L, 1522, r for screening Center [address], for oth , [facility], infec/parastc 120, [place] [id number], diseasesEncntr Bernard, [facility] 120, [place] for suprvsn of [place], [place], tel: normal first [phone] [place], preg, [facility] , [place]. [id number]. trimesterEncounte tel: tel: r For Other [phone] Specified [id number] weeks gestation of Associates Bernard Ciro In Womens 9-201 Linda. Health FRANKLIN, 7 700 [address] Medical 1522, [place] [address], , [facility], 120, [id number], Wagner, [facility], tel: [phone] , [place]. tel: [phone] Family History Family Member Diagnosis Age At [...] Unknown Payers Payer name Insurance type Covered republican ID Authorization(s) [facility] MANJIT [id number] Social History Type Description Quantity Date Captured Alcohol Use Details No Caffeine Use Details Unknown Tobacco Use Status Smoking Status Former smoker Vital Signs Date / Height Weight BMI Pulse Blood Temperature Respiratory Body Head BMI Time: Rate Pressure Rate Surface Circumference percentile Area 185.10 30.8 1232018 lbs 0 mm[Hg] 3:36 kg/m PM eter (2) Chief Complaint And Reason For Visit Unknown Chief Complaint And Reason For Visit Reason For Referral Reason For Referral Unknown Plan Of Care Date Type Action Status Goal Tobacco cessation counseling completed Appointment EdilmacarlLorena BOOKED Future Order: Radiology Order Nuchal Translucency ([id number]) Ordered Future Order: Radiology Order Complete OB Ultrasound > 14 Ordered Weeks (22569) Date Type Problem Goal Intervention Status Start [...]
--- OUTSIDE RECORDS SUMMARY | 2017-10-17 01:32 | External Medical Summary | Continuity of Care Document ---
:1990 Author Organization [facility] [place] Address [address] [place], [place] [id number] Phone Allergies, Adverse Reactions, Alerts Substance Reaction Severity Status Sulfa (Sulfonamide Antibiotics) hives Unknown Active Medications Medication Instructions Dosage Effective Status Comments Dates (start - stop) cyclobenzaprine 5 mg take 1 tablet by 5 MG - Active [facility] tablet oral route 3 times every day as needed FAMOTIDINE (unknown take 1 tablet by - Active strength) oral route every day as needed PREPLUS (unknown take 1 tablet by - Active strength) oral route every day amoxicillin 875 take 1 tablet by Not Available - No Longer [facility] mg-potassium oral route every Active clavulanate 125 mg 12 hours tablet Problems Condition Effective Dates (start - stop) Clinical Status Encntr for suprvsn of normal first - preg, second trimester 16 weeks gestation of - Headache - Encntr [...] weeks gestation of - Procedures Procedure Date Unknown Results Test Name Date and Time Measure Units Reference Range Abnormal Flag Comments Unknown Advance Directives Directive Yes / No Effective Date File Name Unknown Encounters Encounter Practice Location Reason(s) Diagnoses Date Provider Care Team Description For Visit Members Dat VailEncjarrett Jul- Ciro Referring In Womens for suprvsn of 8-201 Linda. Provider: Health PA, normal first 8 700 Linda [address] preg, second Medical Ciro L, 1522, [id number] weeks Center [address], gestation of [place], 120, Center [id number], [place] [facility] 120, Bernard SARAV[place], tel:[phone] [place], , [place]. [id number]. tel: tel:[phone] Dat Wagner Apr- Ciro Referring In Womens 1-201 Linda. Provider: Daniel REID, 8 700 Linda [address] Medical Ciro L, 1522, Center [facility] [address] [facility] [place], 120, [place] [id number], [place] [facility] 120, Bernard [place], tel:[phone] [place], , [place]. [id number]. tel: tel:[phone] Dat Wagner Encntr for Mar-2 Ciro Referring In Womens suprvsn of normal 1-201 Linda. Provider: Health FRANKLIN, first preg, 8 700 Linda PO Box second Medical Ciro L, 1522, [email or web address] weeks Center [address], gestation of [place], 120, Center [id number], Bernard [facility] 120, [place] Bernard [place], tel:[phone] [place], , [place]. [id number]. tel: tel:[phone] Dat Wagner Encntjw for Mar-2 Ciro Referring In Womens Ultrasound suprvsn of normal 1-201 Linda. Provider: Health FRANKLIN, first preg, 8 700 Linda PO Box second Medical Ciro L, 1522, [id number] weeks Center [address], gestation of [place], 120, Center [id number], Bernard, [facility] 120, [place] Bernard [place], tel:[phone] [place], , [place] [id number]. tel: tel:[phone] Dat Wagner Encntr for Feb-2 Ciro Referring In Womens suprvsn of normal 1-201 Linda. Provider: Health FRANKLIN, first preg, 8 700 Linda PO Box second Medical Ciro L, 1522, [email or web address] weeks Center [address], gestation of [place], 120, Center [id number], Bernard, [facility] 120, [place] Bernard [place], tel:[phone] [place], , [place] [id number]. tel: tel:[phone] Dat Wagner Encntr for Feb-0 Ciro Referring In Womens suprvsn of normal 1-201 Linda. Provider: Daniel REID, first preg, first 8 700 Linda [address] [email or web address] weeks Medical Ciro L, 1522, gestation of [place] [address], [place], 120, Center [id number], Bernard, [facility] 120, [place] Bernard [place], tel:[phone] [place], , [place] [id number]. tel: tel:[phone] Dat Wagenr Encntr for Feb-0 Ciro Referring In Womens Ultrasound suprvsn of normal 1-201 Linda. Provider: Health FRANKLIN, first preg, first 8 700 Blanquita [address] [email or web address] weeks Medical Mariano, 1522, gestation of Center [address], [place], 120, [place] [id number], Bernard, Office, [place] Glenda SARAVIA tel:[phone] , [place], [place]. [id number]. tel: tel:[phone] Associates [facility] Encntr screen for Apr- Ciro Referring In Womens infections w sexl 3-201 Linda. Provider: Health PA, mode of 8 700 Linda PO Box transmissEncounte Medical Ciro L, 1522, r for screening Center [address] [place] [address], for oth , [facility], infec/parastc 120, Center [id number], diseasesEncntr Bernard, [facility] 120, for suprvsn of [place], Wagner, tel: normal first [phone] [place], preg, first , [place]. [id number]. trimesterEncounte tel: tel: r For Other [phone] Specified [id number] weeks gestation of Dat Wagner Mar- Ciro In Womens 9- Linda. Health PA, 7 700 [address] Medical 1522, [facility], , [place], 120, [id number], Wagner, MANJIT, tel: [phone] , . tel: [phone] Family History Family Member Diagnosis Age At [...] Unknown Payers Payer name Insurance type Covered democrat ID Authorization(s) [facility] MANJIT BL [id number] Social History Type Description Quantity Date Captured Alcohol Use Details No Caffeine Use Details Unknown Tobacco Use Status Smoking Status Former smoker Vital Signs Date / Height Weight BMI Pulse Blood Temperature Respiratory Body Head BMI Time: Rate Pressure Rate Surface Circumference percentile Area 2 12:58 kg/m PM eter (2) Chief Complaint And Reason For Visit Unknown Chief Complaint And Reason For Visit Reason For Referral Reason For Referral Unknown Plan Of Care Date Type Action Status Goal Tobacco cessation counseling completed Appointment Lorena Tim BOOKED Future Order: Radiology Order Nuchal Translucency ([id number]) Ordered Future Order: Radiology Order Complete OB Ultrasound > 14 Ordered Weeks ([id number]) Date Type Problem Goal Intervention Status Start [...]
[2017-10-17] MEDS ORDERED: CARBOPROST 250 MCG/ML INJECTION IM PRN (01:49)
[2017-10-17] MEDS ORDERED: LIDOCAINE 1% (10mg/ml) 2mL INJ PF SDV ID PRN (01:49)
[2017-10-17] MEDS ORDERED: CALCIUM CARBONATE Chewable 500mg TABLET PO PRN (01:49)
[2017-10-17] MEDS ORDERED: MAG-AL + SIM ORAL LIQUID 30ml PO PRN (01:49)
[2017-10-17] MEDS ORDERED: ACETAMINOPHEN 500 MG TABLET PO PRN (01:49)
[2017-10-17] MEDS ORDERED: METHYLERGONOVINE 0.2 MG/ML INJECTION IM PRN (01:49)
[2017-10-17] MEDS ORDERED: AMPICILLIN 2 GM in NS 100 ML IV ONE (01:59)
[2017-10-17] MEDS ORDERED: AZITHROMYCIN 500 MG TABLET PO ONE (01:59)
[2017-10-17] MEDS ORDERED: OXYTOCIN DRIP 30 UNIT/500 ML ML IV PRN (02:00)
[2017-10-17] MEDS: LR 1,000 ML IV PRN ×2 (02:20→06:22)
[2017-10-17] MEDS: D5LR 1,000 ML IV PRN ×2 (02:21→13:20)
[2017-10-17 03:50] VITALS: BMI 31.1
[2017-10-17] MEDS: AMPICILLIN 1 GM in NS 100 ML IV SCH ×2 (07:00→15:16)
[2017-10-17] MEDS ORDERED: NALOXONE 0.4 MG/ML INJECTION IVP PRN (07:20)
[2017-10-17] MEDS ORDERED: ROPIVACAINE 1% 10MG/ML INJ 200 MG, SUFentanil 50 MCG in NS 100 ML EPI PRN (07:20)
[2017-10-17] MEDS ORDERED: DiphenhydrAMINE 50 MG/ML INJECTION IVP PRN (07:20)
[2017-10-17] MEDS ORDERED: ONDANSETRON 4 MG/2 ML INJECTION IVP PRN (07:20)
--- NOTE | 2017-10-17 07:25 | Anesthesia Preoperative Report ---
Anesthesia Epidural/Spinal Rec - Date and Time Date: 10/17/17 Procedure: Labor Epidural Plan: Epidural - Vital Signs /Para: P:0 Heart Rate: 145 - Medictaions & Allergies Inpatient Medications: Current Medications Acetaminophen (Tylenol) 500 - 1,000 mg PO Q4H PRN PRN Reason: Pain Al Hydroxide/Mg Hydroxide (Maalox Plus) 30 ml PO Q3H PRN PRN Reason: Indigestion Calcium Carbonate (Tums) 500 - 1,000 mg PO Q2H PRN PRN Reason: Indigestion Carboprost Tromethamine (Hemabate) 250 mcg IM O PRN PRN Reason: .Downtime Diphenhydramine HCl (Benadryl) 25 - 50 mg IVP Q3H PRN PRN Reason: Itching Lactated Ringer's (Lactated Ringers) 1,000 mls @ 999 mls/hr IV .Q1H1M PRN Last Admin: 10/17/17 06:22 Dose: 999 mls/hr Ampicillin Sodium 1 gm/ Sodium (Chloride) 100 mls @ 200 mls/hr IV Q4H YANNICK Dextrose/Lactated Ringer's (Dextrose 5%-Lactated Ringers) 1,000 mls @ 125 mls/ hr IV .Q8H PRN PRN Reason: Labor Last Admin: 10/17/17 02:21 Dose: 125 mls/hr Oxytocin (Pitocin Drip) 30 unit in 500 mls @ 2 mls/hr IV .Q24H PRN; Protocol PRN Reason: Induction/Augmentation Last Admin: 10/17/17 02:21 Dose: 2 mls/hr Ropivacaine 200 mg/ Sufentanil Citrate 50 mcg/ Sodium Chloride 121 mls @ 10 mls /min EPI PRN PRN PRN Reason: Protocol Lidocaine HCl (Xylocaine-Mpf 1% Vial) 0.2 mg ID O PRN PRN Reason: IV Start Methylergonovine Maleate (Methergine) 0.2 mg IM O PRN Misoprostol (Cytotec) 800 mcg ID ONCE PRN Naloxone HCl (Narcan) 0.1 mg IVP Q2M PRN PRN Reason: Respiratory distress Ondansetron HCl (Zofran) 4 mg IVP Q6H PRN PRN Reason: Nausea &/or vomiting Allergies/Adverse Reactions: Allergies Allergy/AdvReac Type Severity Reaction Status Date / Time Sulfa (Sulfonamide Allergy Verified 07/21/17 17:50 Antibiotics) - Home Medications Home Medications: Home Medications Medication Instructions Recorded Confirmed Type Amox/Clav [Augmentin 875/125] 875 mg PO BID #10 tab 07/21/17 10/17/17 Rx Cyclobenzaprine [Flexeril] 1 tab PO TID PRN #60 tab 07/21/17 10/17/17 Rx Vits #93/Iron Fum/FA 1 tab PO DAILY 07/21/17 10/17/17 History [ Formula Tablet] Famotidine [Acid Controller] 20 mg PO DAILY 10/17/17 10/17/17 History - Medical History Gastrointestional: Reports: Morbid Obesity Neuro/Musculoskeletal: Reports: Back Problems (chronic back pain, frequent therapy with chiropractor), Headaches (occasional) Other History: Reports: Now (FAZAL 11/17/17) - Surgical History Anesthesia Reactions: None Hx Family Anesthesia Reaction: No History of Motion Sickness: No - Social History Smoking Status: Former smoker Second Hand Exposure: No Substance Use Type: does not use Alcohol Intake Frequency: does not drink - Pertinent Findings Lab Data: CBC and BMP 10/17/17 02:08 - Physical Exam Respiratory Exam: lungs clear, bilateral breath sounds equal - Airway Assessment Mallampati Score: II TMD: 3 Fingerbreadths Neck Extension: good Overall Assessment: no airway concerns - ASA ASA Score: 2 - Discussion Discussion: Discussed risks/options/alternatives of anesthesia and questions answered. Patient consents. Nursing pain assessment noted. Attestation Statement: Prior to the delivery of any anesthetic medication, I examined the patient, developed the plan, obtained the patient's consent and discussed the risk and benefits of the procedure with the patient/guardian.
[2017-10-17] MEDS ORDERED: LIDOCAINE 2%/EPI 1:200,000 20ml SDV PF ONE (16:11)
[2017-10-17] MEDS ORDERED: AMPICILLIN 2 GM in NS 100 ML IV SCH (16:30)
[2017-10-17] MEDS: GENTAMICIN 120 MG in NS 100 ML IV SCH (16:42)
[2017-10-17] MEDS ORDERED: TRANEXAMIC ACID 1,000 MG/10 ML VIAL IV ONE (17:06)
[2017-10-17] MEDS ORDERED: HYDROCODONE/APAP 5mg/325mg TABLET PO PRN (17:17)
[2017-10-17] MEDS ORDERED: HYDROCORTISONE 2.5% CREAM 30gm RECTALLY PRN (17:17)
[2017-10-17] MEDS ORDERED: DiphenhydrAMINE 25 MG CAPSULE PO PRN (17:17)
[2017-10-17] MEDS ORDERED: TETANUS, DIPHTHERIA, a PERTUSSIS (Tdap) 0.5ml INJECTION IM ONE (17:17)
[2017-10-17] MEDS ORDERED: OXYTOCIN DRIP 30 UNIT/500 ML ML IV SCH (17:30)
[2017-10-17] MEDS: IBUPROFEN 800 MG TABLET PO PRN (20:16)
[2017-10-17] MEDS: AMPICILLIN 2 GM in NS 100 ML IV SCH ×2 (20:25→22:41)
[2017-10-18] MEDS: GENTAMICIN 120 MG in NS 100 ML IV SCH ×3 (00:58→17:39)
[2017-10-18] MEDS: AMPICILLIN 2 GM in NS 100 ML IV SCH ×3 (05:49→17:39)
[2017-10-18] MEDS: IBUPROFEN 800 MG TABLET PO PRN ×2 (05:50→21:34)
--- NOTE | 2017-10-18 07:51 | OB/GYN Progress Note ---
OB-PP Progress Note - General PPD1 Maternal Group B Strep: Negative Maternal Rh: positive Maternal Rubella Status: Immune - Subjective Date: 10/18/17 Lochia: Minimal Pain: controlled Voiding: voiding Nausea or Vomiting Present: No - Objective Vital Signs: Last Vital Signs Temp 97.7 F 10/17/17 21:15 Pulse 70 10/17/17 21:15 Resp 18 10/17/17 21:15 BP 131/74 10/17/17 21:15 General: alert and oriented Abdomen: fundus firm, non-tender Extremities: non-tender Laboratory: Laboratory Results - last 24 hr 10/17/17 10/17/17 10/18/17 17:26 17:31 06:21 WBC 15.5 H D RBC 3.98 L Hgb 11.6 L Hct 34.3 L MCV 86.2 MCH 29.1 MCHC 33.8 RDW Std Deviation 40.0 Plt Count 205 MPV 10.2 Cord ABG pH 7.159 L Cord ABG pCO2 59.9 Cord ABG pO2 25.8 Cord ABG HCO3 21.3 Cord ABG Total CO2 23.1 Cord ABG Base Excess -8.3 Cord ABG O2 Sat 32.0 Cord VBG pH 7.301 Cord VBG pCO2 40.6 Cord VBG pO2 25.9 Cord VBG HCO3 20.0 Cord VBG Total CO2 21.3 Cord VBG Base Excess -6.1 Cord VBG O2 Sat 41.5 - Assessment Assessment: SP, FAVD, Chorioamnionitis - Plan Plan: antibiotics Expected date of discharge: 10/19/17 Cont amp and gent through today, recheck CBC [facility].m. [facility]
--- NOTE | 2017-10-18 10:01 | Labor and Delivery Note ---
DATE 10/17/2017 Samantha is a 26-year-old 1 at 35 weeks 4 days gestational age who presented to Maternal/Child with rupture of membranes. She was started on Pitocin and ampicillin due to her unknown GBS status. She received an epidural. Her GBS PCR came back negative so the ampicillin was stopped. She progressed steadily throughout labor. When she got to be complete, she pushed for two hours. Baby was in the OP position. She was exhausted and her progress had slowed down. Anesthesia was asked to bolus her epidural because she was becoming uncomfortable. She had a Trivedi catheter in place. Her temperature vaginally was up to 100.2 and baby's heart tones had raised in the 160s to 170s. Due to the concern for chorio, she was restarted on ampicillin and gentamicin. She was consented for an operative vaginal delivery with forceps. Due to the significant molding, a quick bedside sono confirmed the OP position. Baby was at the +3/5 station. The closed Quiroz forceps were placed and easily articulated. The head was brought down to in two contractions and the forceps were removed. The head and body quickly delivered after that. Baby was initially crying and placed on mom's abdomen. The cord clamping was delayed for more than a minute. Dr. Sandoval took the baby to the warmer for further resuscitation. The placenta delivered spontaneously. She had a second-degree laceration with an extension up the right vagina. These were repaired with 2-0 Vicryl. Her uterine tone was good. However, I started her on a dose of TXA due to the bleeding from the lacerations. Baby is a viable male infant, Apgars 5/7, weight 2686 grams, name "Surinder". Baby is currently in special care nursery for respiratory distress. Mom's antibiotics will be continued for 24 hours. Mom and baby tolerated the delivery well. [facility]
[2017-10-18] MEDS: DOCUSATE CALCIUM 240 MG CAPSULE PO SCH (10:03)
[2017-10-18] MEDS: PRENATAL VITAMIN TABLET PO SCH (10:03)
[2017-10-19] MEDS: IBUPROFEN 800 MG TABLET PO PRN ×2 (05:45→13:42)
[2017-10-19] MEDS: PRENATAL VITAMIN TABLET PO SCH (08:30)
[2017-10-19] MEDS: DOCUSATE CALCIUM 240 MG CAPSULE PO SCH (08:35)
[2017-10-19 13:47] VITALS: BP 130/78; PULSE 77; RESP 18; TEMP 97.7; O2SAT 99
== END 2017-10-19 14:35 | disposition home or self-care (01) | DRG 775 ==
LOC: OBOBS 01:22 → MC 01:23
PROVIDERS: ADMIT Obstetrics & Gynecology; ATTEND Obstetrics & Gynecology